=== PATIENT | male | born 1950 | race Caucasian/White ===

== ENCOUNTER → 2017-07-24 | Outpatient (CLI) | payer MEDICARE, OTHER ==
[~2017-07-24] MED LIST: ALL100 PO; ALLO-119 PO; ASPI81TA94 PO; BENA40TA52 PO; CALC600T63 PO; CHOL10005 PO; CPAP; FAMO20TA28 PO; HYDR-6016 PO; IBUP-1671 PO; LEUP3.753 IM; LEVO-85 PO; NIFE90TA PO; NIFE90TA40 PO; OMEP40CA48 PO; OMEP40CA79 PO; PNEU0.5D3 IM; PYRI25TA18 PO; TRAZ-163 PO
== END ==
LOC: LAB 13:24
PROVIDERS: ATTEND Internal Medicine
DX: R79.89 Other specified abnormal findings of blood chemistry (principal); C61 Malignant neoplasm of prostate; I10 Essential (primary) hypertension; M19.90 Unspecified osteoarthritis, unspecified site
CPT/HCPCS: 36415; 80074; 82040; 82247; 82310; 82374; 82435; 82565; 82728; 82947; 83540; 83550; 84075; 84132; 84155; 84295; 84450; 84460; 84520; 86038

== ENCOUNTER → 2017-07-30 | Outpatient (CLI) | payer MEDICARE, OTHER ==
--- NOTE | 2017-07-30 09:19 | RADIOLOGY IMAGING REPORT ---
FACILITY: [facility] - [place] PATIENT NAME: Chris Saturday : 1950 MR: [id number] V: [id number] EXAM DATE: ORDERING PHYSICIAN: LEOPOLDO RAMOS TECHNOLOGIST[place] [facility] [place] : 1950 Visit/Account:[id number] Date of Sevice: 07/30/2017 LIVER HISTORY: elevated LFT prostate cancer COMPARISON: None. FINDINGS: Gallbladder: And surgically removed Liver: Liver appears enlarged and diffusely heterogeneous although no focal masses demonstrated. Karine er measures 20.2 cm in length Common duct: Normal, 3.6 mm diameter. Pancreas: Partially obscured by bowel, visualized aspects unremarkable. Right kidney: Right kidney appears unremarkable measuring 12 cm in length Upper abdominal aorta and IVC: Patent. Ascites: None visualized. IMPRESSION: Hepatomegaly with diffusely heterogeneous liver although discrete mass is not demonstrated Post surgical changes from a cholecystectomy Report Dictated By: Aicha Cheema MD at 07/30/2017 9:05 AM Report E-Signed By: Aicha Cheema MD at 07/30/2017 9:14 AM WSN:[id number]
== END ==
LOC: US 01:37
PROVIDERS: ATTEND Internal Medicine
DX: K76.0 Fatty (change of) liver, not elsewhere classified (principal); Z90.49 Acquired absence of other specified parts of digestive tract; R79.89 Other specified abnormal findings of blood chemistry; R79.9 Abnormal finding of blood chemistry, unspecified
CPT/HCPCS: 36415; 76705; 81256

== ENCOUNTER → 2017-08-23 | Outpatient (CLI) | payer MEDICARE, OTHER ==
[~2017-08-23] MED LIST changes: +CALC600T82 PO; +MELO-207 PO; +OXYC-865 PO; +SENN8.6T34 PO; +VENL37.514 FT; +VENL37.514 PO; +WARF2TAB73 PO; +WARF3TAB35 PO
[2017-08-23 11:47] LABS: INR 1.11
== END ==
LOC: LAB 11:20
PROVIDERS: ATTEND Nurse Practitioner Family
DX: Z51.81 Encounter for therapeutic drug level monitoring (principal); Z79.01 Long term (current) use of anticoagulants; M17.0 Bilateral primary osteoarthritis of knee
CPT/HCPCS: 36415; 85610

== ENCOUNTER → 2017-09-04 | Outpatient (CLI) | payer MEDICARE, OTHER ==
[~2017-09-04] MED LIST changes: -MELO-207 PO
== END ==
LOC: LAB 14:41
PROVIDERS: ATTEND Internal Medicine
DX: I10 Essential (primary) hypertension (principal); R79.89 Other specified abnormal findings of blood chemistry
CPT/HCPCS: 36415; 82040; 82247; 82310; 82374; 82435; 82565; 82947; 84075; 84132; 84155; 84295; 84450; 84460; 84520

== ENCOUNTER 2017-12-31 10:52 | Outpatient (RCR) | payer MEDICARE, OTHER ==
--- NOTE | 2017-09-02 09:30 | Oncology Note ---
Patient calls to report that he is having hot flashes and requests something to help with them. He was prescribed effexor 37.5 and will increase the dose if needed. 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
[~2017-12-31 10:52] MED LIST changes: +MELO-207 PO
[2018-01-01] MEDS ORDERED: AZIT-17 PO (15:59)
[2018-01-01] MEDS ORDERED: FLUT16SP19 NS (15:59)
[2018-01-01] MEDS ORDERED: HYDR5SUS PO (15:59)
[2018-01-01] MEDS ORDERED: PROM5SYR PO (16:47)
== END 2018-01-09 14:27 | disposition home or self-care (01) ==
LOC: RAON 10:52
PROVIDERS: ATTEND Radiology Radiation Oncology
DX: C61 Malignant neoplasm of prostate (principal)
CPT/HCPCS: 36415; 84153; 84403; G0463; 99212

== ENCOUNTER → 2018-01-01 | Outpatient (CLI) | payer MEDICARE, OTHER ==
[~2018-01-01] MED LIST changes: +AZIT-17 PO; +FLUT16SP19 NS; +HYDR5SUS PO; +PROM5SYR PO
--- NOTE | 2018-01-01 15:12 | RADIOLOGY IMAGING REPORT ---
FACILITY: [facility] [place] PATIENT NAME: Chris Saturday : 1950 MR: [id number] V: [id number] EXAM DATE: [id number] ORDERING PHYSICIAN: LEOPOLDO RAMOS TECHNOLOGIST: Location: [facility] Patient: Chris : 1950 Visit/Account:[id number] Date of Sevice: 01/01/2018 Exam type: CHEST PA AND LAT History: cough Comparison: None. Findings: A small amount linear stranding in the lung bases may represent scarring versus atelectasis. There i s no evidence of focal infiltrates, pleural effusions or pulmonary edema. Cardiac silhouette is norm al in size. The trachea is midline. There are moderate spondylotic changes of thoracic spine IMPRESSION: 1. Mild linear stranding at lung bases consistent with scarring versus atelectasis Report Dictated By: Aicha Cheema MD at 01/01/2018 2:46 PM Report E-Signed By: Aicha Cheema MD at 01/01/2018 3:06 PM WSN:[email or web address]
== END ==
LOC: RAD 13:57
PROVIDERS: ATTEND Internal Medicine
DX: M47.894 Other spondylosis, thoracic region (principal); R91.8 Other nonspecific abnormal finding of lung field
CPT/HCPCS: 71046

== ENCOUNTER → 2018-05-26 | Outpatient (CLI) | payer MEDICARE, OTHER ==
[~2018-05-26] MED LIST changes: +BENA40TA53 PO; +DICL-190 PO; +FLU180SY11 IM; -TRAZ-163 PO; +TRAZ100T31 PO
--- NOTE | 2018-05-26 18:22 | RADIOLOGY IMAGING REPORT ---
FACILITY: [facility] PATIENT NAME: Chris Saturday : 1950 MR: [id number] V: [id number] EXAM DATE: ORDERING PHYSICIAN: LEOPOLDO RAMOS TECHNOLOGIST: Location: [facility] - [place] Patient: Chris : 1950 Visit/Account:[id number] Date of Sevice: 05/26/2018 HIP LEFT Indication: Hip pain. Comparison: None available Findings: Frontal view of the pelvis and a frog-leg lateral view of the left hip are obtained. No acute fracture or dislocation is identified. There is mild left hip joint osteoarthritis. Pubic sy mphysis and sacroiliac joints are normal. There are multiple pelvic phleboliths. Suspected small ench ondroma involves the proximal right femur. This was seen on CT scan in 2016. IMPRESSION: 1. Mild left hip joint osteoarthritis. Report Dictated By: Mario Quigley at 05/26/2018 6:16 PM Report E-Signed By: Mario Quigley at 05/26/2018 6:19 PM WSN:[email or web address]
== END ==
LOC: RAD 13:05
PROVIDERS: ATTEND Internal Medicine
DX: S76.219A Strain of adductor muscle, fascia and tendon of unspecified thigh, initial encounter (principal); M16.12 Unilateral primary osteoarthritis, left hip

== ENCOUNTER 2018-07-01 10:59 | Outpatient (RCR) | payer MEDICARE, OTHER ==
[~2018-07-01 10:59] MED LIST changes: -SENN8.6T34 PO; +SENN8.6T35 PO
--- NOTE | 2018-07-02 03:13 | ONCOLOGY FOLLOW UP NOTE ---
EVENT DATE: July 01, 2018 REASON FOR VISIT Patient is here for reevaluation of prostate cancer. Prior surgery and external beam radiotherapy. Previously received six months of ADT. ONCOLOGY HISTORY [place] 3+4=7 adenocarcinoma of the prostate, status post robotic radical prostatectomy, 12/30/15. Tumor occupied 40% of the gland, which was bilateral. Extraprostatic extension noted in the left posterior prostate with nodule measuring 1.6 x 1.0 x 1.0 cm. He also had a second nodule on the right side at 1.7 x 1.5 x 0.9 cm with tumor extension to within 2 mm of the right lateral ink surface. Extensive perineural invasion. Stage: Pathologic T3a NX M0 or M1. Patient received external beam radiation therapy 6840 cGy, 38 fractions with IMRT. See ARIA for exact dates. Radiation completed 10/08/16. ADT with Lupron for six months. INTERVAL HISTORY Don was seen back in the oncology clinic for a reassessment. Overall, he is doing exceptionally well. He has excellent urinary control. Baseline nocturia x2. No recent changes. No bowel complaints. Denies any new or persistent bone pain. He initially had some minor hot flashes with the Lupron, which was controlled with low-dose Effexor 37.5 mg daily. He requests a refill, which was provided to him today. PSA remains undetectable at less than 0.06 on 06/24/18. Total testosterone has recovered to the mid-normal range in our hospital lab. That was drawn on 06/24/18 and was 561 with normal reference range 300-720 ng/dL. Patient was last seen by Dr. Gordillo in April and has an appointment for followup on November 07. PAST MEDICAL HISTORY 1. High-volume [place] 7 adenocarcinoma of the prostate. 2. Reflux. 3. Hypertension. 4. Sleep apnea. PAST SURGICAL HISTORY 1. Radical prostatectomy, 12/30/15. 2. Cholecystectomy in 2003. ALLERGIES SULFA. MEDICATIONS 1. Venlafaxine 37.5 mg daily. 2. Prilosec 40 mg a day. 3. Benazepril 40 mg a day. 4. Allopurinol 300 mg a day. 5. Nifedipine 90 mg ER. 6. Calcium with vitamin D. 7. Aspirin 81 mg a day. 8. CPAP. FAMILY HISTORY Father had colon carcinoma and mother had breast cancer. SOCIAL HISTORY Social alcohol use. Occasional use of cigars. COMPREHENSIVE REVIEW OF SYSTEMS Entirely negative with the exception of the minor hot flashes and erectile dysfunction. PHYSICAL EXAMINATION GENERAL: A pleasant 68-year-old gentleman. KPS 100. VITAL SIGNS: Weight 258, BP 129/71, respirations 16, O2 saturation 93%. LUNGS: Clear bilaterally. LYMPHATIC: No lymphadenopathy. HEART: Heart sounds regular. ABDOMEN: No gross organomegaly, mass, or tenderness. RECTAL: Exam is deferred due to a PSA of zero. IMPRESSION This is a 68-year-old gentleman with a high-risk adenocarcinoma of the prostate. He was successfully treated with surgery and external beam radiation therapy in 2015 and early 2016. His PSA is undetectable, and I am very pleased with his course today. He will follow up with Dr. Gordillo in October with a PSA. I will now see him in a year with an updated blood test, or sooner p.r.n. He will follow up with Dr. Muller after the first of the year for ongoing medical needs. MAYKEL
== END 2018-07-18 15:34 | disposition home or self-care (01) ==
LOC: RAON 10:59
PROVIDERS: ATTEND Radiology Radiation Oncology
DX: C61 Malignant neoplasm of prostate (principal); I10 Essential (primary) hypertension; K21.9 Gastro-esophageal reflux disease without esophagitis; G47.30 Sleep apnea, unspecified; Z92.3 Personal history of irradiation
CPT/HCPCS: 36415; 84153; 84403; G0463; 99212

== ENCOUNTER 2018-07-24 09:45 | Outpatient (RCR) | payer MEDICARE, OTHER ==
--- NOTE | 2018-06-04 10:33 | PT INITIAL EVALUATION ---
MEDICAL DIAGNOSIS: Groin strain, left, initial encounter TREATMENT DIAGNOSIS: same DATE OF ONSET: 05/03/18 SUBJECTIVE: Chris Saturday presents to physical therapy with complaints of L groin strain that occurred approximately one month ago and states that the mechanism of injury is unknown. He reports that he had x-rays a few weeks ago and denies any fractures and states that some arthritis is present in his L hip but everything else looked great. He reports that heat and muscle relaxer helps the groin pain feel better and worse with rising and moving his L hip into adduction makes the groin pain worse. He reports that he currently cannot participate in his bowling leg and walk well due to the pain. He reports that sitting feels great and will abolish the pain completely. He reports that he feels like this pain has not changed for the better or the worse since it started. He denies any low back pain now or in the past. Pain location is L medial groin: adductor calvin and described as . Pain scale is 4 on a ten point pain scale. REHAB PROBLEM LIST: Increased Pain Decreased ROM Decreased Strength Decreased Endurance Decreased Function Decreased Gait PREVIOUS MEDICAL HISTORY: See EMR OCCUPATION: Retired OBJECTIVE: Posture: He demonstrates forward head, B rounded shoulders, increased thoracic kyphosis, and decreased lumbar lordosis ROM: L hip flexion, extension, abduction and ER: NIL with normal end feels. L IR and adduction: minimal to moderate restriction with painful end feel. Strength: L hip flexion, abduction, adduction, extension: 4+/5 without any pain with MMT Palpation: TTP: L adductor calvin Sensation: Intact L2-S1 B Special Tests: Adductor tendinopathy: (+) with palpation, (+) with concentric and eccentric motion, (+) with stretching = tendinopathy. Repeated hip flexion reduced resting pain from 4/5 to 0-1/10 and increased L hip IR and adduction motion. Mobility: Independent Gait: With no AD, he demonstrates the following gait mechanics: increased base of support, decreased R step length, antalgic gait, normal B feet clearance, decreased pelvic rotation, and decreased velocity. Balance: Did not test will test in the future if appropriate ASSESSMENT: Chris will benefit from skilled physical therapy to address the listed impairments to improve function and return to prior level of function and return to bowling without any L groin pain. Short Term Goals 2 weeks: Pt will demonstrate full L hip AROM in all directions without any pain to improve function and QOL. 4 weeks: Pt will demonstrate abolished pain with L hip eccentrics to improve function and QOL. 6 weeks: Pt will return to prior level of function without any L hip/groin pain to improve function and QOL. Patient's Goals reduce groin pain and return to bowling PLAN: Patient to be seen for Manual Therapy/STM/MET Strengthening/condition Range of Motion Spinal Stabilization Work Hardening/Cond Stretching Neuromuscular Re-ed Closed Chain Program Posture/Body mechanics Home Exercise Program Therapeutic Activities 2x/Week for 6 Weeks If you have any questions, comments, or concerns about this report or plan, please contact me at . Thank you, Radames Khanna, PT, DPT MTDD
--- NOTE | 2018-07-08 14:18 | PT PLAN OF CARE ---
Physician: Mo Muller MD Patient is being seen: 2 x/week Therapist: Radames Khanna, PT, DPT Medical Diagnosis: Groin strain, left, initial encounter Treatment Diagnosis: same, quad strain Date of Onset: 05/03/18 Date of Initial Evaluation: 06/03/18 Date patient was last seen: 07/08/18 Number of treatments: 10 Number of cancellations/No shows: 0 INTERVENTIONS: Manual Therapy/STM/MET Strengthening/condition Range of Motion Spinal Stabilization Work Hardening/Cond Stretching Neuromuscular Re-ed Closed Chain Program Posture/Body mechanics Home Exercise Program Therapeutic Activities GOALS: 2 weeks: Pt will demonstrate full L hip AROM in all directions without any pain to improve function and QOL. MET 4 weeks: Pt will demonstrate abolished pain with L hip eccentrics to improve function and QOL. MET 6 weeks: Pt will return to prior level of function without any L hip/groin pain to improve function and QOL. MET 6 weeks: Pt will return to prior level of function without any L quad pain to improve function and QOL. Progressing well. PATIENT'S GOAL: reduce groin pain and return to bowling Status of Patient's Goals: Progressing well Patient Compliance: Good Prognosis: Excellent Reasons for continuing therapy: This is a progress note for Don Saturday. He reports that his L groin has fully resolved. He reports that his L quad pain continues to improve. He reports that his quad pain is less than 1/10, which he reports is a significant improvement from the previous session. He is progressing well with abolished groin pain, increased accessory quad mobility, decreased quad tone during ther ex, decreased pain with ambulation, and returning closer to prior level of function. Posture: He demonstrates forward head, B rounded shoulders, increased thoracic kyphosis, and decreased lumbar lordosis ROM: L hip flexion, extension, abduction and ER: NIL with normal end feels. L IR and adduction: minimal to moderate restriction with painful end feel. Strength: L hip flexion, abduction, adduction, extension: 4+/5 without any pain with MMT Palpation: TTP: L rectus femoris distally Special Tests: Adductor tendinopathy: (-) with palpation, (-) with concentric and eccentric motion, (-) with stretching = resolved tendinopathy Mobility: Independent If you have any questions, please contact me at [phone]. Thank you, Radames Khanna, PT, DPT MTDD
--- NOTE | 2018-07-24 11:02 | PT PLAN OF CARE ---
Physician: Mo Muller MD Patient is being seen: 2x/week Therapist: Radames Khanna, PT, DPT Medical Diagnosis: Groin strain, left, initial encounter Treatment Diagnosis: same Date of Onset: 05/03/18 Date of Initial Evaluation: 06/03/18 Date patient was last seen: 07/24/18 Number of treatments: 13 Number of cancellations/No shows: 0 INTERVENTIONS: Manual Therapy/STM/MET Strengthening/condition Range of Motion Spinal Stabilization Work Hardening/Cond Stretching Neuromuscular Re-ed Closed Chain Program Posture/Body mechanics Home Exercise Program Therapeutic Activities GOALS: 2 weeks: Pt will demonstrate full L hip AROM in all directions without any pain to improve function and QOL. MET 4 weeks: Pt will demonstrate abolished pain with L hip eccentrics to improve function and QOL. MET 6 weeks: Pt will return to prior level of function without any L hip/groin pain to improve function and QOL. MET 6 weeks: Pt will return to prior level of function without any L quad pain to improve function and QOL. MET PATIENT'S GOAL: reduce groin pain and return to bowling Status of Patient's Goals: Progressing well Patient Compliance: Good Prognosis: Excellent Reasons for continuing therapy: This is a discharge note for Don Saturday. He reports that his L groin has fully resolved. He denies any quad pain. He reports that he feels like he has made a full recovery. He reports that he has returned to bowling and walking without any pain or any problems. He has progressed well within PT and has demonstrated the following improvements: abolished groin pain, abolished quad pain, increased accessory mobility of quad, independent on specific exercises, and return to prior level of function. He has met all of his goals. As result, he will be discharged from PT. Posture: He demonstrates forward head, B rounded shoulders, increased thoracic kyphosis, and decreased lumbar lordosis ROM: L hip flexion, extension, abduction and ER: NIL with normal end feels. L IR and adduction: NIL with normal end feel. Strength: L hip flexion, abduction, adduction, extension: 4+/5 to 5/5 without any pain with MMT Palpation: TTP: no longer TTP anywhere Special Tests: Adductor tendinopathy: (-) with palpation, (-) with concentric and eccentric motion, (-) with stretching = resolved tendinopathy Mobility: Independent If you have any questions, please contact me at [phone]. Thank you, Radames Khanna PT, DPT MAYKEL
[2018-07-29] MEDS ORDERED: NIFE90TA PO (14:00)
[2018-07-29] MEDS ORDERED: VENL37.514 PO (14:00)
[2018-07-29] MEDS ORDERED: OMEP-125 PO (14:00)
[2018-07-29] MEDS ORDERED: ALLO-119 PO (14:00)
[2018-07-29] MEDS ORDERED: BENA40TA53 PO (14:00)
== END 2018-07-24 18:00 | disposition home or self-care (01) ==
LOC: PT 09:45
PROVIDERS: ATTEND Internal Medicine
DX: S76.212A Strain of adductor muscle, fascia and tendon of left thigh, initial encounter (principal); M16.12 Unilateral primary osteoarthritis, left hip
CPT/HCPCS: 97162

== ENCOUNTER → 2018-07-29 | Outpatient (CLI) | payer MEDICARE, OTHER ==
[~2018-07-29] MED LIST changes: +OMEP-125 PO
[2018-07-29 14:51] LABS: LDL CHOLESTEROL 93 mg/dl
== END ==
LOC: LAB 14:02
PROVIDERS: ATTEND Internal Medicine
DX: G47.33 Obstructive sleep apnea (adult) (pediatric) (principal); C61 Malignant neoplasm of prostate; K21.9 Gastro-esophageal reflux disease without esophagitis; R78.79 Finding of abnormal level of heavy metals in blood; I10 Essential (primary) hypertension
CPT/HCPCS: 36415; 82040; 82247; 82310; 82374; 82435; 82465; 82565; 82728; 82947; 83540; 83550; 83718; 84075; 84132; 84155; 84295; 84443; 84450; 84460; 84478; 84520; 84550